=== PATIENT | male | born 1960 | race Caucasian/White ===

== ENCOUNTER → 2017-12-23 | Day surgery (SDC) | payer BC ==
[2017-12-20 14:51] VITALS: Ht 182.9 cm; Wt 120.9 kg
[~2017-12-23] VITALS: Ht 182.9 cm; Wt 120.9 kg
[~2017-12-23] MED LIST: ASPI325T39 PO; ATOR-22 PO; DILT120C68 PO; EpHEDrine SULFATE 50MG/5ML SYR ONE; FENTANYL CITRATE INJ 50 MCG/1 ML 2 ML VIAL ONE; LEVE500T13 PO; LIDOCAINE HCL 2% 2 ML VIAL (20MG/ML) ONE; MIDAZOLAM HCL 1 MG/ML 2ML VIAL ONE; PROPOFOL IV EMULSION 10 MG/ML 20 ML VIAL ONE; SODIUM CHLORIDE 0.9% 500ML 500 ML IV ONE
--- NOTE | 2017-12-23 08:13 | Endo History and Physical ---
History & Physical Date of Service: December 23, 2017. Chief Complaint: Referring Physician: History of Present Illness Colon polyp surveillance Past Medical History Atrial Fibrillation, Neurological Disorder, Male Genitourinary Prob., Seizure Disorder, High Cholesterol, Heart Disease Past Surgical History Hx Cardiac Surgery: Yes (CARDIOVERSION) Hx Internal Defibrillator: No Hx Pacemaker: No Hx Abdominal Surgery: No Hx Post-Op Nausea and Vomiting: No Hx Cancer Surgery: No Hx Thoracic Surgery: No Hx Orthopedic: Yes (LEFT KNEE ARTHROSCOPY) Hx Urinary Tract Surgery: No Family History None Social History Smoking Status: Never Smoker Hx Substance Use: No Hx Alcohol Use: No Allergies Coded Allergies: Codeine (Verified Allergy, Unknown, Seizure, 12/20/17) CODEINE WITH COUGH SYRUP Current Medications Reported Home Medications Medications Dose Route/Sig Max Daily Dose Days Date Category Aspirin Ec (Aspirin) 325 Mg Tab 325 Mg PO HS 10/10/17 Reported Tiazac (Diltiazem HCl) 120 Mg Capcr 120 Mg PO QAM 10/10/17 Reported Keppra (Levetiracetam) 500 Mg Tab 3 Tab PO BID 10/10/17 Reported Lipitor (Atorvastatin Calcium) 20 Mg Tab 20 Mg PO QAM 10/10/17 Reported Vital Signs Weight (Kilograms): 120.91 Height (Feet): 6 Height (Inches): 0 Physical Exam General Appearance: no apparent distress Respiratory/Chest: Auscultation: breath sounds normal Abdomen: Inspection & Palpation: soft, non-distended Assessment and Plan Stable for colonoscopy
--- NOTE | 2017-12-23 09:24 | GI REPORT ---
Patient Name: Bryant Espinoza Procedure Date: 12/23/2017 8:24 AM Date of : 1960 Admit Type: Outpatient Age: 57 Gender: Male Attending MD: Hamilton Smith MD Procedure: Colonoscopy Providers: Hamilton Smith MD Referring MD: Feliberto Mcknight Indications: High risk colon cancer surveillance: Personal history of colonic polyps Medicines: Monitored Anesthesia Care Complications: No immediate complications. Estimated Blood Loss: Estimated blood loss: none. Procedure: Pre-Anesthesia Assessment: - Prior to the procedure, a History and Physical was performed, and patient medications and allergies were reviewed. The patient is competent. The risks and benefits of the procedure and the sedation options and risks were discussed with the patient. All questions were answered and informed consent was obtained. Patient identification and proposed procedure were verified by the physician and the nurse in the procedure room. Mental Status Examination: alert and oriented. Airway Examination: normal oropharyngeal airway and neck mobility. Respiratory Examination: clear to auscultation. CV Examination: normal. ASA Grade Assessment: II - A patient with mild systemic disease. After reviewing the risks and benefits, the patient was deemed in satisfactory condition to undergo the procedure. The anesthesia plan was to use monitored anesthesia care (MAC). Immediately prior to administration of medications, the patient was re-assessed for adequacy to receive sedatives. The heart rate, respiratory rate, oxygen saturations, blood pressure, adequacy of pulmonary ventilation, and response to care were monitored throughout the procedure. The physical status of the patient was re-assessed after the procedure. After I obtained informed consent, the scope was passed under direct vision. Throughout the procedure, the patient's blood pressure, pulse, and oxygen saturations were monitored continuously. The Scope was introduced through the anus and advanced to the terminal ileum. The colonoscopy was performed without difficulty. The patient tolerated the procedure well. The quality of the bowel preparation was good. The terminal ileum, ileocecal valve, appendiceal orifice, and rectum were photographed. Findings: The perianal and digital rectal examinations were normal. The terminal ileum appeared normal. A 15 mm polyp was found in the cecum. The polyp was flat. The polyp was removed with a hot snare. Resection and retrieval were complete. Verification of patient identification for the specimen was done by the physician and nurse using the patient's name and date. To prevent bleeding after the polypectomy, two hemostatic clips were successfully placed (MR conditional). There was no bleeding at the end of the procedure. A 20 mm polyp was found in the cecum. The polyp was flat. The polyp was removed with a hot snare. The polyp was removed with a piecemeal technique using a hot snare. Resection and retrieval were complete. Vaporization for tissue destruction using argon plasma was successful. To prevent bleeding after the polypectomy, three hemostatic clips were successfully placed (MR conditional). There was no bleeding at the end of the procedure. A medium post polypectomy scar was found in the transverse colon. No residual polyp tissue was seen. A 3 mm polyp was found in the transverse colon next to the scar tissue. The polyp was sessile. The polyp was removed with a cold biopsy forceps. Resection and retrieval were complete. Non-bleeding internal hemorrhoids were found during retroflexion. The hemorrhoids were small. Impression: - The examined portion of the ileum was normal. - One 15 mm polyp in the cecum, removed with a hot snare. Resected and retrieved. Clips (MR conditional) were placed. - One 20 mm polyp in the cecum, removed with a hot snare and removed piecemeal using a hot snare. Resected and retrieved. Treated with argon plasma coagulation (APC). Clips (MR conditional) were placed. - Post-polypectomy scar in the transverse colon. - One 3 mm polyp in the transverse colon next to the scar tissue, removed with a cold biopsy forceps. Resected and retrieved. - Non-bleeding internal hemorrhoids. Recommendation: - Discharge patient to home. - Await pathology results. - Repeat colonoscopy in 6 months for surveillance after piecemeal polypectomy. - No aspirin, ibuprofen, naproxen, or other non-steroidal anti-inflammatory drugs for 7 days after polyp removal. - Return to referring physician. Hamilton Smith MD 12/23/2017 9:23:51 AM This report has been signed electronically. Note Initiated On: 12/23/2017 8:24 AM Number of Addenda: 0 I attest to the content of the Intraoperative Record and orders documented therein, exceptions below {[id number]}
--- NOTE | 2017-12-23 09:25 | Discharge Instructions ---
Endoscopy Patient Instructions Date / Procedure(s) Performed December 23, 2017. Colonoscopy Allergy Information Coded Allergies: Codeine (Verified Allergy, Unknown, Seizure, 12/20/17) CODEINE WITH COUGH SYRUP Discharge Date / Findings December 23, 2017. Multiple polyps removed. Medication Instructions Stopped Medication(s): last ASA Tuesday No Aspirin for 7 days Provider Instructions Activity Restrictions - No exercising or heavy lifting for 24 hours. - Do not drink alcohol the day of the procedure. - Do not drive a car or operate machinery until the day after the procedure. - Do not make any important decisions or sign important papers in 24 hours after the procedure. Following Day: - Return to full activity which may include returning to work/school. Diet Start your diet with liquids and light foods (jello, soup, juice, toast). Then eat your usual diet if not nauseated. Treatment For Common After Affects For mild abdominal pain, bloating, or excessive gas: - Rest - Eat lightly - Lie on right side Follow-Up Information Follow-up with Dr. Feliberto Mcknight as scheduled Anesthesia Information What You Should Know You have had a procedure that required some medicine to reduce anxiety and discomfort. This treatment is called moderate sedation. After receiving the treatment, you may be sleepy, but you will be able to breathe on your own. The effects of the treatment may last for several hours. Follow these instructions along with Activity/Diet recommendations noted above: * Do NOT do anything where dizziness or clumsiness would be dangerous. * Rest quietly at home today, then you can be up and about tomorrow. * Have a responsible person stay with you the rest of today. * You may have had an I.V. today. If so, you may take the dressing off later today. Recommendations Call your doctor if: * Trouble breathing * Continuous vomiting for more than 24 hours * Temperature above 101 degrees * Severe abdominal pain or bloating * Pain not relieved by pain medicine ordered * There is increased drainage or redness from any incision * A large amount of rectal bleeding greater than 2-3 tablespoons. (If you had a polyp/s removed or have hemorrhoids, a small amount of blood - from the rectum is to be expected.) * You have any unanswered questions or concerns. IN THE EVENT OF A SERIOUS EMERGENCY, GO TO THE NEAREST EMERGENCY ROOM Your discharge instructions were prepared by provider Hamilton Smith. Patient Instructions Signature Page Bryant Espinoza Patient (or Guardian) Signature/Date: I have read and understand the instructions given to me by my caregivers. Caregiver/RN/Doctor Signature/Date: The above-named patient and/or guardian has received patient instructions on this date. + Original Patient Signature Page (only) stays with chart. Please make copy for patient.
[2017-12-23 09:52] VITALS: BP 128/78; PULSE 71; O2SAT 97
--- NOTE | 2017-12-23 09:59 | Anesthesiology Progress Note ---
Anesthesia Post Op Note Date & Time December 23, 2017 at 09:59 Vital Signs Pain Intensity: 0 Vital Signs Past 12 Hours Date Time Temp Pulse Resp B/P (MAP) Pulse Ox O2 Delivery O2 Flow Rate FiO2 12/23/17 09:52 71 16 128/78 (95) 97 Room Air 12/23/17 09:37 76 16 106/70 (82) 94 Room Air 12/23/17 09:22 75 16 93/69 (77) 92 Room Air 12/23/17 08:16 36.7 70 18 164/95 (118) 96 Room Air Notes Mental Status: alert / awake / arousable, participated in evaluation Pt Amnestic to Procedure: Yes Nausea / Vomiting: adequately controlled Pain: adequately controlled Airway Patency, RR, SpO2: stable & adequate BP & HR: stable & adequate Hydration State: stable & adequate Anesthetic Complications: no major complications apparent
== END | disposition home or self-care (01) ==
LOC: C.GI 07:38
PROVIDERS: ATTEND Student in an Organized Health Care Education/Training Program
DX: Z12.11 Encounter for screening for malignant neoplasm of colon (principal); Z86.010 Personal history of colon polyps; K63.5 Polyp of colon; D12.0 Benign neoplasm of cecum; K64.8 Other hemorrhoids; I48.91 Unspecified atrial fibrillation; E66.9 Obesity, unspecified; Z79.899 Other long term (current) drug therapy; Z88.5 Allergy status to narcotic agent; Z79.82 Long term (current) use of aspirin; G40.909 Epilepsy, unspecified, not intractable, without status epilepticus; E78.00 Pure hypercholesterolemia, unspecified; Z68.36 Body mass index [BMI] 36.0-36.9, adult